=== PATIENT | female | born 1925 | race Caucasian/White ===

== ENCOUNTER 2017-03-10 11:06 | Emergency (ER) | payer MEDICARE, BC ==
[~2017-03-10 11:06] MED LIST: PRILOSEC DPS20 MG PO; TOPROL XL DPS25 MG PO
--- NOTE | 2017-03-11 09:55 | ER ---
ADMIT: 03/10/2017 RM/LOC: ER [facility] MR#: [id number] [address] [id number] SANJAY ROSADO [address] [place] [address] Emergency Room Report SEX: F AGE: 89 : 1925 DATE: 03/10/2017 CHIEF COMPLAINT: Left flank pain. HISTORY OF PRESENT ILLNESS: An 89-year-old white female, who presents to the ER with a day's duration of abdominal pain. States this feels like diverticulitis. She has had this in the past. She was hospitalized at this time, this did not require surgery. She also has a history of kidney stones. She does not believe this feels like a kidney stone. She complains of left lower quadrant pain, radiates to her back. She has some vague left-sided flank pain. Describes the pain as sharp and stabbing. Associated with nausea, loss of appetite. Denies fevers, chills, vomiting, or diarrhea. Worse with movement, relieved by nothing at this point. Denies any troubles urinating, constipation, diarrhea. No problems urinating. PAST MEDICAL HISTORY: Hypertension, kidney stones, diverticulitis, B12 deficiency, osteoarthritis, and osteoporosis. SURGICAL HISTORY: Cholecystectomy, tonsillectomy, kyphoplasty, bilateral hip replacement. ALLERGIES: TO NSAIDS. SOCIAL HISTORY: Denies smoking, drugs, or alcohol. COURSE IN THE EMERGENCY ROOM: The patient was seen and examined. GENERAL: Afebrile, nontoxic, mild amount of distress. HEENT: Normocephalic and atraumatic. Pupils are equal and reactive. Pharynx is nonerythematous. NECK: Soft and supple. No lymphadenopathy. CHEST: Clear. HEART: Regular. No murmurs, gallops, or rubs. ABDOMEN: Soft. She has left lower quadrant tenderness. No McBurney's point tenderness. BACK: No CVA tenderness. SKIN: Warm and dry. EXTREMITIES: Nontender. No pedal edema. NEUROLOGICAL: She is alert and oriented. Motor and sensation intact. LABORATORY STUDIES: White count 6.8, hemoglobin 15.3, hematocrit 46.7, and platelets 217. Chemistry; sodium 141, potassium 3.9, BUN 15, creatinine is 1.6, bilirubin 0.6, AST 19, ALT 15, lipase 134. Urine shows 3+ blood, no leukocyte esterase, negative nitrite. A CT renal colic was obtained, no findings of any ureterolithiasis. There is evidence of diverticulosis. No inflammatory changes suggesting diverticulitis. I did speak with Dr. Connors. She recommended empiric treatment for diverticulitis. We will start the patient on Augmentin. I spoke with pharmacy to dose given her kidney function, recommended 500 mg Augmentin b.i.d. She is ADMIT: 03/10/2017 RM/LOC: [facility] MR#: [id number] [address] [place] [id number] [place] [address] Emergency Room Report SEX: F AGE: 89 : 1925 to follow up with Dr. Connors on Wednesday. She was given her first dose of antibiotic prior to discharge. CLINICAL IMPRESSION: 1. Diverticulosis. 2. Left lower quadrant abdominal pain. 3. History of kidney stones. 4. History of diverticulitis. 5. Acute kidney injury. DISPOSITION: She is discharged home on Augmentin 500 one tab p.o. b.i.d. for 10 days. Follow up with Dr. Connors on Wednesday. Call for an appointment. She is to follow a low-fiber diet. Recommended clear liquids until she is feeling improved. She has pain medication at home. She can use Tylenol if that is sufficing. Return with worsening signs or symptoms. Discharged home in stable condition. PILY Estrada / Bruno Ruvalcaba MD / trini JOB #: [id number] CC: Bruno Ruvalcaba MD, Attending Physician Carmen Connors MD, Family Physician
== END 2017-03-10 13:28 | disposition home or self-care (01) ==
LOC: ER 11:06
DX: R10.32 Left lower quadrant pain (principal); K57.90 Diverticulosis of intestine, part unspecified, without perforation or abscess without bleeding; I10 Essential (primary) hypertension; M19.90 Unspecified osteoarthritis, unspecified site; Z87.442 Personal history of urinary calculi; Z98.890 Other specified postprocedural states; Z88.8 Allergy status to other drugs, medicaments and biological substances